=== PATIENT | male | born 1965 | race Caucasian/White ===

== ENCOUNTER 2016-11-11 08:22 | Inpatient (IN) | payer SELFPAY ==
[~2016-11-11] VITALS: Ht 182.9 cm; Wt 147.0 kg
--- NOTE | ~2016-11-11 | HP ---
Unit #: [id number] #: [id number] Patient: ADAM GUERRA [id number] [address] [place], [place] [address] [id number] MR#: [id number] NAME: ADAM GUERRA ROOM: Age: 51 Sex: M Admission Date: 11/11/2016 : 1965 Attending Physician: Michi Petty M.D. HISTORY AND PHYSICAL CHIEF COMPLAINT Left arm tingling and numbness. HISTORY OF PRESENT ILLNESS The patient is a 51-year-old male with a past medical history of hypertension, hyperlipidemia, and hypothyroidism, who presented to the emergency department for evaluation of the above. The patient states that he was in his usual state of health until the morning of admission when he was getting ready for work. He states that around 7 a.m. he noticed numbness and tingling involving his left arm and leg. He also reports weakness in the left hand. He is left-handed. He states that he was dropping the soap and had difficulty gripping his toothbrush. He denies any similar problem, although he did have an admission here in December 2010 for left upper extremity numbness. He states that this was much more severe than what occurred during that time. He denies any difficulty swallowing, no headache, no vision changes, and no chest pain or trouble breathing. In the emergency department, initial pulse and blood pressure were 87 and 178/112, respectively. A CT of the head was done and showed no acute findings. Also of note, the patient's glucose was 255 on comprehensive metabolic panel. He is being admitted to [facility] for evaluation and further treatment. PAST MEDICAL HISTORY 1. Admission to [facility] January 01-2010, for left upper extremity numbness concerning for a possible TIA. He was seen in consultation by Dr. Orr and underwent carotid Doppler that was negative for stenosis. Additionally, he had an MRI of the brain that was negative for acute infarction. He was discharged home on aspirin, hydrochlorothiazide, and Zocor. 2. Hypertension. 3. Hyperlipidemia. 4. Obstructive sleep apnea. 5. Hypothyroidism. PAST SURGICAL HISTORY 1. Mastoid surgery. 2. Tonsillectomy. 3. Testicular surgery. SOCIAL HISTORY The patient lives with his . There is no tobacco use. Reports Unit #: [id number] #: [id number] Patient: ADAM GUERRA occasional alcohol use. He works for [employer]. FAMILY HISTORY Notable for his mother having a myocardial infarction. She also had cervical cancer. His maternal grandfather had a cerebrovascular accident. ALLERGIES Aspirin "puts polyps in my nose." HOME MEDICATIONS None. The patient is supposed to be on hydrochlorothiazide, as well as Zocor. He states that he has not been taking them for over a year due to financial reasons. REVIEW OF SYSTEMS A complete review of systems is negative except as indicated in the History of Present Illness. The patient states that he has had frequent urination. He also reports increased thirst that he attributed to CPAP. He denies any change in his weight. Again, the patient states that he has not been taking medications due to financial reasons. PHYSICAL EXAMINATION VITAL SIGNS: Temperature is not recorded, pulse 87, respirations 16, blood pressure 178/112, most recently 196/98, and oxygen saturation is 95% on room air. GENERAL: Patient is a male who is awake, alert, and in no acute distress. HEENT: Head is atraumatic. Mucous membranes are moist. NECK: Supple. Trachea is midline. CARDIOVASCULAR: Regular rate and rhythm. LUNGS: Clear to auscultation bilaterally with no increased work of breathing. ABDOMEN: Soft and nontender with bowel sounds present in all four quadrants. EXTREMITIES: Nontender with no pedal edema. NEUROLOGIC: Patient is awake and alert. He follows commands. There is no facial asymmetry. Tongue is midline. There is no appreciable pronator drift. Radio Interference Expert strength is symmetric. Sensation is subjectively decreased involving the left cheek, as well as left upper and lower extremities. PSYCHIATRIC: Mood and affect are normal. Patient is cooperative. SKIN: Skin of examined areas is warm and dry. DIAGNOSTIC STUDIES LABORATORY: Complete blood count notable for white blood cell count of 10.8. INR is 1. Troponin is less than 0.05. Comprehensive metabolic panel notable for glucose of 255 and albumin is 3.1. IMAGING: CT of the head shows no acute abnormality. CARDIOLOGY: EKG shows normal sinus rhythm with a rate of 80 beats per minute. ASSESSMENT The patient is a 51-year-old male with: 1. Paresthesias of the left upper and lower extremities, as well as left face concerning for possible transient ischemic attack. The patient had a negative workup in 2010 for symptoms involving the left upper extremity. Unit #: [id number] #: [id number] Patient: ADAM GUERRA 2. Hyperglycemia. The patient denies ever being told he has diabetes. Glucose is 255 on comprehensive metabolic panel 3. Uncontrolled hypertension. The patient has not been taking medication due to financial reasons. He is supposed to be on hydrochlorothiazide. 4. Hyperlipidemia noncompliant with medication. 5. Obesity with a weight of 131.54 kg. 6. Hypothyroidism not on medication. 7. Obstructive sleep apnea on CPAP. PLAN 1. Admit for observation to intermediate level. 2. Healthy heart, consistent carbohydrate diet if passes bedside swallow. 3. MRI of the brain without contrast and CT angiogram of the head and neck per stroke protocol. 4. Stroke protocol per Neurology. 5. Neuro checks. 6. Aspirin if not already given. 7. Check temperature. 8. Consult Neurology regarding paresthesias of the left upper and lower extremities. 9. Hemoglobin A1c. 10. Low-dose sliding scale insulin with Accu-Cheks. 11. Restart hydrochlorothiazide. 12. Check TSH. 13. Serial cardiac enzymes. 14. CPAP at home settings. 15. SCDs for DVT prophylaxis. 16. Repeat labs in the morning. 17. Additional workup and consultants based on above. 1. Dictated by Toro Garrett/porfirio TD: 11/11/2016 15:46 JOB #: [id number] HISTORY AND PHYSICAL Page 1 of 1 X Therese Bell MD X HISTORY AND PHYSICAL
--- NOTE | ~2016-11-11 | DS ---
Unit #: [id number] #: [id number] Patient: ADAM GUERRA [id number] [address] [address] [id number] I MR#: [id number] NAME: ADAM GUERRA ROOM: 341 Age: 51 Sex: M Admission Date: 11/11/2016 : 1965 Discharge Date: 11/14/2016 Attending Physician: Junie Mustafa M.D. Primary Care Physician: No Primary Care Physician DISCHARGE SUMMARY PRIMARY CARE PROVIDER None. PRINCIPAL DIAGNOSES 1. 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 2. Diabetes mellitus type 2, uncontrolled with hemoglobin A1c of 9. 3. Hypertension. 4. Hyperlipidemia with low-density lipoprotein of 175. 5. Obstructive sleep apnea. 6. Mild protein malnutrition. 7. Medical noncompliance. 8. Hypothyroidism. 9. Obesity, morbid. 10. Peripheral arterial disease. 11. Reactive leukocytosis. 12. Chronic kidney disease stage 3 with baseline creatinine of approximately 1.3, likely diabetes and hypertensive induced. SELLING UNDERWRITER Dr. Orr, Neurology. PROCEDURES 1. A two-dimensional echocardiogram on November 13, 2016 with ejection fraction of 50% to 55%, mildly dilated left atrium noted, mildly enlarged right atrium, and mild aortic regurgitation, mild mitral regurgitation, mild tricuspid regurgitation. No evidence of vegetation. No clot. [id number] atherosclerosis of aorta. 2. CT of the head without contrast on November 11, 2016 with no acute findings. Chronic low-attenuation changes of the marlen secondary to small vessel disease or old infarct. 3. CT angiogram of the head and neck on November 12, 2016 with abnormal caliber change at the mid portion of both cervical internal carotid arteries. Intracranially, there is a regular appearance to the proximal intracranial vertebral arteries bilaterally, mild narrowing of the distal left common carotid artery but no hemodynamically significant per NASCET criteria. Abnormal right posterior cerebral artery distribution with high-grade stenosis or complete occlusion with reconstitution noted. 4. 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 CLINICAL HISTORY AND HOSPITAL COURSE Mr. Guerra is a 51-year-old male, who presents to the emergency Unit #: [id number] #: [id number] Patient: ADAM GUERRA department with tingling, numbness of the left extremities. He subsequently developed visual change. CT scan of the head in the emergency department was unremarkable and patient was initially placed in observation for TIA workup. Unfortunately the following morning, the patient developed left-sided visual change and appeared to be having evolving stroke for which he was seen by Dr. Orr. Patient was emergently transferred for open MRI which revealed stroke. Patient was found to have multiple uncontrolled risk factors including diabetes, hypertension, hyperlipidemia. He has been placed on medications for all the above and things are significantly improved. The patient continues to have tingling and numbness to the extremities and loss of the left peripheral vision. Unfortunately, patient does not have any insurance and does not qualify for Medicaid. public health social worker is currently in the process of discussing with the patient's being placed on her insurance. Unfortunately, this lack of funding prohibits my ability to send to subacute rehab or even obtain home health. Again, discussion with family is currently pending. I anticipate unfortunately discharge home with plans to obtain insurance through the patient's spouse and then hopefully at that time he can arrange perhaps transfer to [facility]. Of course, this plan is significantly suboptimal but patient is agreeable. DISCHARGE CONDITION Poorly ambulatory. DISCHARGE STATUS Discharge to home. DISCHARGE MEDICATIONS 1. Lipitor 40 mg at bedtime. 2. Refill his lisinopril 20 mg daily with three refills. 3. Plavix 75 mg p.o. daily with three refills. 4. Glucotrol 5 mg p.o. daily with three refills. 5. Metformin 1000 mg p.o. b.i.d. with three refills. 6. Vitamin B12 at 1000 mcg p.o. daily. 7. Glucometer, test strips, lancets also written. DISCHARGE INSTRUCTIONS 1. The patient was instructed to follow a heart healthy diabetic diet and he has received diabetic education. He will be taught how to use Glucometer prior to discharge and should do Accu-Cheks twice daily at home, once fasting and one meal two hours postprandial. 2. He can increase his activity as tolerated but again he is significant ataxic and rehab would be in his best interest. FOLLOWUP The patient will follow up with [facility] in one week. If patient is able to obtain insurance, he can be referred to [facility] for acute rehab. Time spent on discharge today, 52 minutes. Dictated by... Junie Mustafa M.D. Unit #: [id number] #: [id number] Patient: ADAM GUERRA BARRY/jose de jesus TD: 11/15/2016 15:34 JOB #: [id number] DISCHARGE SUMMARY Page 1 of 1 X Junie Mustafa MD X DISCHARGE SUMMARY
--- NOTE | ~2016-11-11 | CT23 ---
[facility] A Service of [facility] RADIOLOGY TEXT RESULTS PATIENT: ADAM GUERRA LOCATION: [facility] 341-01 : [birth year] UNIT #: [id number] AGE: [address]: Junie Mustafa MD SEX: M ORDER DR: [id number] [facility] [address]. [place], [place] [address] [id number] MR#: [id number] Acc #: [id number] NAME: ADAM GUERRA : 1965 SEX: M STUDY DATE/TIME: 11/12/2016 16:27 UNIT: [address] ROOM: [address] [place] [address] DESCRIPTION: CT Angio Neck Attending Physician: Junie Mustafa M.D. Ordering Physician: Bernadine Zuniga A.P.R.N. MEDICAL IMAGING REPORT This report is preliminary unless electronic signature is present EXAM CT angiogram head and neck HISTORY Left arm, face, leg numbness since 11/11/2016. This is a stroke protocol CTA. Apparently, it was ordered in the emergency room on 11/11/2016 but, per the technologist, orders were never placed. This resulted in delayed performance of the study. It is now being performed after being reordered by the physician on the floor. TECHNIQUE CT angiography of the head and neck vessels performed during the intravenous administration of 100 mL of Isovue-370. Imaging acquired in the axial plane followed by multiple reconstructed and reformatted images for the purpose of 3-D CT angiography of the head and neck vessels. This CT exam was performed with one or more of the following radiation dose reduction techniques: automatic exposure control, adjustment of mA and/or kV according to patient size, and iterative reconstruction. COMPARISON STUDIES There is an MRI of the brain from earlier today that shows a right posterior cerebral artery distribution infarct. FINDINGS CT ANGIOGRAM NECK: There is normal aortic arch branch pattern and no hemodynamically-significant narrowing is suspected at the great vessel origins from the arch. Evaluation of the right carotid system shows 0% stenosis at the right carotid bifurcation by NASCET criteria. There is, however, likely some mild smooth narrowing of the midportion of the cervical internal carotid STS. [facility] A Service of [facility] RADIOLOGY TEXT RESULTS PATIENT: ADAM GUERRA LOCATION: [facility] 341-01 : [birth year] UNIT #: [id number] AGE: [address]: Junie Mustafa MD SEX: M ORDER DR: artery on the right with some increased caliber of the vessel more distally at the distal cervical petrous portion. Evaluation of the left carotid system shows what is likely noncalcified plaque/wall thickening involving the distal common carotid artery extending into the bulb and there is smooth narrowing of the midportion of the cervical internal carotid artery on the left with increase in caliber of the vessel at the distal cervical internal carotid artery to the petrous portion. No dissection flap is appreciated. By NASCET criteria at the bifurcation, there is not hemodynamically significant stenosis, though there is probably mild stenosis of the distal left common carotid artery. The caliber change in the cervical internal carotid arteries is abnormal and nonspecific. A consideration would include dissection with some mural thrombus though as noted above. No flap is appreciated at this time. Another consideration would be underlying fibromuscular dysplasia and please evaluate further clinically for this possible entity. Some large vessel vasculitis is possible. The vessels are not beaded in configuration or irregular. This patient might benefit from MR angiogram of the neck vessels with a dissection protocol to see if mural hematoma can be documented. Both vertebral arteries are patent. The left is slightly dominant. The origins are not well seen due to technical factors. In the neck, the vertebral arteries are otherwise essentially unremarkable. Intracranially, the vessels have an irregular appearance bilaterally. Again, please correlate for concern for some vasculitis or underlying connective tissue disorder, such as fibromuscular dysplasia. There are mild areas of stenosis bilaterally, probably worse on the right in the proximal intracranial right vertebral artery. The basilar is widely patent. There is abnormal appearance to the right posterior cerebral artery distribution with mild narrowing at its origin and a high-grade stenosis or occlusion with reconstitution at about P2/P3 junction on the right side. This is consistent with a large recent ischemic insult seen. Flow to the right posterior cerebral artery distribution distal to this is diminished when compared to the left side. More irregular narrowing throughout the P1/P2 vessel on the right also noted. There is milder irregular narrowing seen in the proximal left posterior cerebral artery distribution. The anatomy at the level of the anterior communicator is complex with 3 A2-type vessels. No definite aneurysm is seen. The left A1 vessels mildly hypoplastic. No additional focal central stenosis or intracranial vascular cutoff is suspected. Neither posterior communicator is definitely seen. No suspicion for intracranial aneurysm allowing for the technical limitation of CT for evaluation of the aneurysm at the level of the skull base. There are some cervical spine degenerative changes and there are postop changes midline anterior soft tissue neck. Partly seen is some paranasal sinus disease and fluid or inflammatory change in the mastoid air cells. On the right side, there is some defect in the inferolateral mastoid. Please correlate for history of wall up mastoidectomy. [facility] A Service of [facility] RADIOLOGY TEXT RESULTS PATIENT: ADAM GUERRA LOCATION: [facility] 341-01 : 69 UNIT #: [id number] AGE: [address]: Junie Mustafa MD SEX: M ORDER DR: IMPRESSION 1. The study is abnormal. There is abnormal caliber change noted at the midportion of both cervical internal carotid arteries. The vessels are smoothly narrowed when compared to the more distal vessels bilaterally. This is abnormal and raises concern for some underlying pathology, such as fibromuscular dysplasia or possibly dissection with mural hematoma. No dissection flap is seen. Please correlate for clinical evidence of fibromuscular dysplasia or concern for some type of a larger vessel vasculitis. Additionally, intracranially, there is an irregular appearance to the proximal intracranial vertebral arteries bilaterally. There is some irregular stenosis with mild narrowing more apparent to the right than the left. This narrowing is irregular rather than smooth and is seen in the internal carotid arteries but again is abnormal and raises concern for some type of underlying pathology, such as vasculitis or fibromuscular dysplasia. 2. There is mild narrowing of the distal left common carotid artery but by NASCET criteria, there is not hemodynamically-significant narrowing at the carotid bifurcations. 3. There is an abnormal appearance to the right posterior cerebral artery distribution. There is diminished flow with areas of high-grade stenosis or complete occlusion with reconstitution seen. The vessel is also irregular. There is milder irregularity in the left posterior cerebral artery distribution. This could be due to the residua of thromboembolic disease or possibly intracranial involvement with vasculitis. Consider correlation with a conventional angiogram if there is concern for vasculitis. 4. Vascular variations were discussed above. Aside from the posterior circulation findings, no additional intracranial vascular cutoff is appreciated or central stenosis is appreciated. 5. Patient has probably had prior wall up mastoidectomy on the right. Please correlate with surgical history. Efforts underway to reach covering practitioner to relay information verbally at this time. I spoke to covering practitioner within the hour. STAT * RESULT Dictated by... Suzie Shultz M.D. THIS IS AN ELECTRONICALLY VERIFIED REPORT Suzie Shultz M.D. at 11/13/2016 7:27 AM SAC/pcl TD: 11/12/2016 17:55 [facility]. [facility] A Service of [facility] RADIOLOGY TEXT RESULTS PATIENT: ADAM GUERRA LOCATION: [facility] 341-01 : [birth year] UNIT #: [id number] AGE: [address]: Junie Mustafa MD SEX: M ORDER DR: JOB #: [id number] MEDICAL IMAGING REPORT Page 1 of 1 COPY
--- NOTE | ~2016-11-11 | HM ---
Unit #: [id number] #: [id number] Patient: ADAM GUERRA [id number] [place], [place] [address] [id number] I MR#: [id number] NAME: ADAM GUERRA : 1965 SEX: M STUDY DATE/TIME: 11/12/2016 UNIT: [facility] PCU ROOM: 341 STUDY DESCRIPTION: Attending Physician: Junie Mustafa M.D. Primary Care Physician: No Primary Care Physician CARDIOLOGY REPORT EXAM 24-hour Holter monitor. DATE APPLIED 11/12/2016 DATE SCANNED 11/15/2016 READ BY [facility] Cardiology. ORDERED BY Haider Zuniga. REASON FOR STUDY Stroke. FINDINGS Underlying rhythm is sinus tachycardia with an average heart rate of 104 beats per minute, minimum heart rate of 67 beats per minute, and a maximum heart rate of 137 beats per minute. The minimum heart rate of 67 beats per minute is noted at 2:46 p.m. The maximum heart rate of 137 beats per minute is noted at 3:33 p.m. The patient had a 0.7 second pause noted at 11:55 p.m. The patient had 2039 single multifocal premature ventricular complex, 74 ventricular couplets, and 16 ventricular bigeminy noted. The patient had 127 single premature atrial complex noted. No atrial fibrillation seen. CONCLUSION 1. Underlying rhythm is sinus tachycardia with an average heart rate of 104 beats per minute, minimum heart rate of 67 beats per minute, and a maximum heart rate of 137 beats per minute. 2. No sustained atrial or ventricular arrhythmias noted. 3. No significant pauses noted. 4. Frequent single multifocal premature ventricular complex and ventricular couplets noted. 5. Occasional single premature atrial complex noted. 6. No atrial fibrillation noted. 7. Patient did not record any symptoms. Unit #: [id number] #: [id number] Patient: ADAM GUERRA Dictated by... Toro Castillo TD: 11/15/2016 16:25 JOB #: [id number] CARDIOLOGY REPORT Page 1 of 1 X Radha Batres MD <ELECTRONICALLY SIGNED> 11/16/16 1429 HOLTER MONITOR REPORT
--- NOTE | ~2016-11-11 | EKG ---
PATIENT: ADAM GUERRA UNIT #: [id number] Ventricular Rate: 80 BPM Atrial Rate: 80 BPM P-R Interval: 154 ms QRS Duration: 110 ms Q-T Interval: 388 ms QTC Calculation(Bezet): 447 ms P Windsor: 54 degrees Calculated R Windsor: -63 degrees Calculated T Windsor: 57 degrees Diagnosis Line: Normal sinus rhythm Diagnosis Line: Pulmonary disease pattern Diagnosis Line: Left anterior fascicular block Diagnosis Line: Abnormal ECG Diagnosis Line: When compared with ECG of 20-FEB-2012 09:00, Diagnosis Line: T wave inversion no longer evident in Inferior Diagnosis Line: leads Diagnosis Line: Confirmed by KENDALL SALEH MD ([id number]) on Diagnosis Line: 11/11/2016 7:36:37 PM INTERPRETING MD: THERESE KOLB
--- NOTE | ~2016-11-11 | CT71 ---
[facility] A Service of [facility] [place] RADIOLOGY TEXT RESULTS PATIENT: ADAM GUERRA LOCATION: [facility] : [birth year] UNIT #: [id number] AGE: [address]: Michi Petty MD SEX: M ORDER DR: [id number] [facility] [address] [facility]. [place], [place] [address] [id number] MR#: [id number] Acc #: [id number] NAME: ADAM GUERRA : 1965 SEX: M STUDY DATE/TIME: 11/11/2016 10:23 UNIT: PEDRO ROOM: STUDY DESCRIPTION: CT Head Wo Contrast Attending Physician: Michi Petty M.D. Ordering Physician: Michi Petty M.D. Primary Care Physician: Primary Care Physician No MEDICAL IMAGING REPORT This report is preliminary unless electronic signature is present EXAM Head CT 11/11 INDICATIONS Left arm numbness and tingling with facial numbness that started today. FINDINGS Axial images were obtained from base to vertex without contrast. Comparison is made with 07/17/2011. The CT exam was performed with one or more of the following radiation dose reduction techniques: automatic exposure control, adjustment of mA and/or kV according to patient size, and iterative reconstruction. No skull fractures are identified. Postoperative changes are noted in the right temporal bone. Chronic mucosal thickening again seen in the left maxillary sinus with probable mucous retention cyst. Ventricular size and configuration are within normal limits. There is no acute infarct or hemorrhage. There are no masses. Chronic small vessel ischemic changes are present in the white matter. IMPRESSION No acute findings in the brain. No significant change from prior. Chronic changes in the left maxillary sinus. Postoperative changes noted right temporal bone. There are chronic low attenuation changes in the marlen which could be related to chronic small vessel ischemic disease or old infarct. These are also stable. Addendum: There are chronic low attenuation changes in the marlen which could be related chronic small vessel ischemic disease or old infarct. These are also stable. . [facility] A Service of [facility] [place] RADIOLOGY TEXT RESULTS PATIENT: ADAM GUERRA LOCATION: [facility] : [birth year] UNIT #: [id number] AGE: [address]: Michi Petty MD SEX: M ORDER DR: Dictated by... Servando Smith Jr., M.D. THIS IS AN ELECTRONICALLY VERIFIED REPORT Servando Smith Jr., M.D. at 11/11/2016 5:18 PM TACO/noa TD: 11/11/2016 11:10 JOB #: [id number] MEDICAL IMAGING REPORT Page 1 of 1 COPY
--- NOTE | ~2016-11-11 | MR18 ---
[facility] A Service of [facility] RADIOLOGY TEXT RESULTS PATIENT: ADAM GUERRA LOCATION: A 341-01 : [birth year] UNIT #: [id number] AGE: [address]: Junie Mustafa MD SEX: M ORDER DR: [id number] [facility] [address] [address]. [place], [place] [address] [id number] I MR#: [id number] Acc #: [id number] NAME: ADAM GUERRA : 1965 SEX: M STUDY DATE/TIME: 11/12/2016 14:03 UNIT: A PCU ROOM: 341 STUDY DESCRIPTION: MR Brain Wo Contrast Attending Physician: Junie Mustafa M.D. Ordering Physician: Therese Bell M.D. Primary Care Physician: Primary Care Physician No MEDICAL IMAGING REPORT This report is preliminary unless electronic signature is present EXAM MRI of the brain without HISTORY 51-year-old male patient complains of left arm weakness, numbness, and tingling with left-sided facial numbness for 2 days. Question CVA. This is an inpatient from [facility]. Study performed on wide-bore magnet secondary to size. Study is motion limited, and this is despite patient medication. TECHNIQUE MRI of the brain was performed without contrast using routine 1.5-T wide-bore imaging technique. COMPARISON There is comparison study from 01/01/2011. FINDINGS There is a new large area of abnormally restricted diffusion in the right posterior cerebral artery distribution. The area of involvement is large, about 9 cm AP dimension x 2.9 cm ML dimension, involving the medial right temporal lobe to the medial right occipital lobe inferiorly. There is additionally restricted diffusion in the right thalamus, consistent with insult to a thalamoperforator. This is most consistent with a thromboembolic insult to the right posterior cerebral artery distribution. Further clinical evaluation for possible thromboembolus source is recommended. Patient is apparently scheduled for a CT angiogram of the head and neck. Allowing for the considerable motion, there is mild local mass effect, and there is signal abnormality on T2 and FLAIR imaging. There is also what is likely chronic disease in the brainstem with abnormal signal intensity [facility] A Service of [facility] RADIOLOGY TEXT RESULTS PATIENT: ADAM GUERRA LOCATION: [facility] 341-01 : [birth year] UNIT #: [id number] AGE: [address]: Junie Mustafa MD SEX: M ORDER DR: within the marlen centrally extending to the medulla. There is also, in addition to the right thalamic lacunar insult which is more recent in appearance, preexisting lacunar disease in the thalami and basal ganglia. There is nothing to suggest hemorrhagic transformation. During this call, I have relayed the findings to Dr. Haleigh goff for this patient at [facility]. There is no extraaxial fluid collection. Major intracranial flow voids are maintained. There is some fluid or inflammatory change in the mastoid air cells, worse on the right. There is some mucosal disease likely in the paranasal sinuses, at least left maxillary sinus. Midline structures are grossly unremarkable. IMPRESSION 1. Significant motion limitation of study noted. Nonetheless, there is a large recent-appearing ischemic insult involving the right posterior cerebral artery distribution with local mass effect, but no midline shift and no convincing evidence for hemorrhagic transformation. Further evaluation of possible thromboembolus source is recommended. In addition to involvement of the medial right temporal and right occipital lobe, there is an insult in the right thalamus consistent with extension through a thalamoperforator on the right. Further evaluation for thromboembolus source recommended. 2. Preexisting probable sequelae of small vessel disease. STAT * RESULT Dictated by... Suzie Shultz M.D. THIS IS AN ELECTRONICALLY VERIFIED REPORT Suzie Shultz M.D. at 11/15/2016 3:20 PM Manjula TD: 11/12/2016 16:13 JOB #: [id number] MEDICAL IMAGING REPORT Page 1 of 1 COPY
--- NOTE | ~2016-11-11 | A ---
[facility] Nutrition Therapy DATE: 11/13/16 Patient: ADAM GUERRA Physician: DEVEN Address: [address] [facility] Room/Bed: [address] [place] [address], Zip: [place] [phone] Admit Date: 11/11/16 Date of : [birth year] Height: 6 0 Weight: 324 147 NUTRITIONAL ASSESSMENT: REASON: Consult re: nutrition education 51 y/o male admitted for parsthesis. New Dx of T2DM PMH: HTN, HLD, hypothyroid, Anthropometrics: ht: 6'0" wt: 324# (147 kg) BMI 43 Assessment: Chart reviewed, events noted. Pt seen for consult re: nutrition education. Pt has HTN, HLD, and new Dx of T2DM. RD manufacturing engineering intern visited pt at bedside and provided pt with written and verbal diet education regarding heart healthy diet and diabetes medical nutrition therapy. Pt was very receptive to information and motivated to change. RD manufacturing engineering intern helped pt set goals and encouraged compliance to diet information given. RD/manufacturing engineering intern will remain available. Intervention: 1. Diet education Recommendations: 1. Comply with diet education given. 2. This pt would benefit from following up with an outpatient dietitian to assist with weight loss and diabetes management. 3. Recommend consulting a certified physician assistant for this pt. RD will f/u per protocol. Respectfully, REYNOLD LOPEZ, hospitality intern Peggy Sotelo MS, RD, LD Food and Nutritional Services [facility] cc: client file
--- NOTE | ~2016-11-11 | EE ---
Unit #: [id number] #: [id number] Patient: ADAM GUERRA [id number] [address] [address] [id number] I MR#: [id number] NAME: ADAM GUERRA : 1965 SEX: M STUDY DATE/TIME: 11/12/2016 UNIT: C3A PCU ROOM: [address] [place] [address] DESCRIPTION: EEG Attending Physician: Junie Mustafa M.D. Referring Physician: Therese Bell M.D. Primary Care Physician: No Primary Care Physician NEURODIAGNOSTICS REPORT EXAM EEG REASON FOR THE STUDY Dizziness, paresthesias, rule out focal seizures. EEG DESCRIPTION This is an inpatient, digitally recorded multi-montage adult EEG with leads placed according to the International 10-20 System. Hyperventilation was not done but photic stimulation was attempted. With the patient fully aroused, there is 9.5 Hz posterior dominant alpha rhythm which is symmetric and attenuates with eyes opening. The patient did become drowsy and later on stage 2 sleep was seen. No clearcut interictal discharges or clinical events were seen. Hyperventilation was not done. Photic stimulation was attempted in intermittent stepwise pattern up to the flash frequency of 30 Hz but I did not see any driving, asymmetry or paroxysmal activity. No clinical events were seen. IMPRESSION This is essentially a normal adult awake and asleep EEG. An EEG like this does not rule out epilepsy. Clinical correlation is recommended. Dictated by... Toro Menchaca/paula TD: 11/13/2016 09:24 JOB #: [id number] Unit #: [id number] #: [id number] Patient: ADAM GUERRA NEURODIAGNOSTICS REPORT Page 1 of 1 X Mya Orr MD NEURODIAGNOSTICS REPORT
--- NOTE | ~2016-11-11 | CT17 ---
[facility] A Service of [facility] RADIOLOGY TEXT RESULTS PATIENT: ADAM GUERRA LOCATION: [facility] 341-01 : [birth year] UNIT #: [id number] AGE: [address]: Junie Mustafa MD SEX: M ORDER DR: [id number] [place] [address] [place], [place] [address] [id number] I MR#: [id number] Acc #: [id number] NAME: ADAM GUERRA : 1965 SEX: M STUDY DATE/TIME: 11/12/2016 16:27 UNIT: [address] ROOM: [facility] STUDY DESCRIPTION: CT Angio Head Attending Physician: Junie Mustafa M.D. Ordering Physician: Bernadine Zuniga A.P.R.N. MEDICAL IMAGING REPORT This report is preliminary unless electronic signature is present EXAM CTA head and neck HISTORY Refer below. FINDINGS Please refer to the CTA head report on the same date for complete details. Dictated by... Suzie Shultz M.D. THIS IS AN ELECTRONICALLY VERIFIED REPORT Suzie Shultz M.D. at 11/13/2016 7:27 AM FRANNY/lianne TD: 11/12/2016 19:24 JOB #: [id number] MEDICAL IMAGING REPORT Page 1 of 1 COPY
--- NOTE | ~2016-11-11 | CO ---
Unit #: [id number] #: [id number] Patient: ADAM GUERRA [id number] [place] [id number] [facility]. [place], [place] [address] [id number] I MR#: [id number] NAME: ADAM GUERRA ROOM: 341 Age: 51 Sex: M Admission Date: 11/11/2016 : 1965 Attending Physician: Junie Mustafa M.D. Primary Care Physician: Primary Care Physician No Consultation Date: 11/11/2016 CONSULTATION REPORT PRIMARY CARE PHYSICIAN Not listed. REASON FOR CONSULT Paresthesia of the left upper and left lower extremities. PATIENT IDENTIFICATION This is a 51-year-old, left-handed, male, evaluated in the ER room 20 at [facility]. SOURCE OF INFORMATION Obtained from the patient as well as medical record. HISTORY OF PRESENT ILLNESS This is a 51-year-old, left-handed, male with a past medical history of hypertension, hypothyroidism, hyperlipidemia, possible TIA in the past who presents to [facility] with complaints of sudden onset of left facial, left arm, and left leg weakness and tingling. He states that he woke up in his usual state of health and when he was showering around 7:00 in the morning, he felt lightheaded and felt as though he could not hold his toothbrush in his left arm. He felt like his left side of his face, arm, and leg were tingling and that he had difficulty using them. He denies having any fall or slurred speech, but states he felt as though his left side of his face was droopy. He states that he continues to feel as though the left side of his face, arm, and leg are tingly. He states that at one point, the left side of the face felt twitchy and that it now more feels tingly. Symptoms have improved, but he states that he still feels as though "things are not normal." He denies any vertigo. He denies any loss of vision or double vision, headache or neck pain, new or recent infectious symptoms, illness or injury. He does admit to noncompliance with his medications. He denies any exacerbating or alleviating factors or any other associated symptoms. He denies any associated chest pain, shortness of air, abdominal pain, or palpitations. He denies any swallowing difficulty, headache or neck pain, recent illness or injury, or loss of consciousness or loss of awareness. He denies any twitching of his left arm or left leg. He reports that they felt weak this morning. He had a head CT without contrast in the ER on 11/11/2016 that shows no acute findings in the brain with chronic changes in the left maxillary sinus. Postoperative changes noted in the right temporal bone and chronic low attenuation changes in the marlen, which could be related to chronic small vessel ischemic disease or early infarct, stable. Blood glucose in the ER on arrival was 217. White blood cell count was 10.8, hemoglobin 15.3, hematocrit 46.4, platelet count 173. His PT was 11, INR 1.0, PTT 28.5, troponin less than 0.05 and repeat troponin Unit #: [id number] #: [id number] Patient: SHEARIN,ADAM less than 0.05 and TSH 2.25. PAST MEDICAL HISTORY 1. He was seen at this facility in 2010 for possible TIA with similar symptoms of left arm numbness only. He was treated for possible TIA, hypertension, hyperlipidemia, as well as hypothyroidism and atypical chest pain felt to be noncardiac in origin. He had an MRI of the brain done that was negative for any acute infarction, mass lesion or acute hemorrhage and a carotid Doppler that was negative for stenosis. He was sent home on hydrochlorothiazide, Zocor and aspirin. 2. Hypertension. The patient admits that he is not compliant. 3. Hypothyroidism. 4. Hyperlipidemia, as discussed above. 5. Obesity. 6. Tonsillectomy. 7. Adenoidectomy. 8. Testicular surgery. 9. Mastoid bone removal on the right. 10. Nonsmoker. ALLERGIES He reports an allergy to aspirin, though apparently it is documented as developing nasal polyps, not an actual anaphylactic allergy or intolerance with GI bleeding. HOME MEDICATIONS His home medications are being reconciled, but he admits to noncompliance with his medications. FAMILY HISTORY Positive for myocardial infarction, stroke and cancer. SOCIAL HISTORY The patient is . He denies tobacco use, alcohol abuse or illicit drug use. He states he drinks very rarely. REVIEW OF SYSTEMS 14-point review of systems was done. Pertinent positives as discussed above, otherwise negative. PHYSICAL EXAMINATION VITAL SIGNS: Temperature not yet documented, he has been reported as afebrile, pulse 96, respirations 16, blood pressure 175/108, blood pressure in the ER on arrival was 178/112, oxygen saturation 93%, height 6 feet 0 inches, which is documented from 2014. He does not have a current weight in the computer. His last weight was documented as 290 in 2015. NEUROLOGIC: The patient is awake, alert, and oriented to person, place, and time as well as events. No right or left confusion. No finger agnosia. No aphasia, dysarthria, or apraxia. Cranial nerve exam; on repeat scherer of vision testing, he demonstrates repeated difficulty in the left upper outer quadrant visual field concerning for possible quadrantanopia. He had difficulty with this repeatedly on exam inconsistently. His eyes are however conjugate. There is no ptosis, no nystagmus. Extraocular movements are intact. Sensation of face and scalp exam, he has difficulty differentiating between soft touch and pinprick on the face, arm, and leg on the left side Unit #: [id number] #: [id number] Patient: SHEARIN,ADAM compared to the right. Hearing is intact to voice. He is hard of hearing. Tongue is midline. Uvula is midline. Palate elevation is normal. Head turning and shoulder shrug are unremarkable. Neck is supple. Motor exam demonstrates normal bulk and tone. His strength is essentially equal. I do not appreciate any focal weakness on exam. Sensory exam as discussed above. Gait and Romberg deferred. Coordination unremarkable. DIAGNOSTIC STUDIES IMAGING STUDIES: As discussed above. LABORATORY RESULTS: As discussed above. IMPRESSION 1. Left facial and left-sided dysesthesia, concern for possible left quadrantanopia, rule out ischemic infarct. 2. History of left-sided paresthesia in 2010 of the left upper extremity, possible transient ischemic attack. 3. Noncompliance with medications. 4. Hypertension, not well controlled. 5. Hyperlipidemia. We will check a fasting lipid profile in the morning. 6. History of hypothyroidism. TSH today is 2.25. 7. History of obesity. 8. Nonsmoker. PLAN The patient states an allergy to aspirin though seems to be more of an intolerance. Regardless, we will start the patient on Plavix rather than aspirin and we will initiate a stroke workup as well as an EEG. He is going to do MRI at this time for further evaluation. We will follow up on that imaging as well as a CT angiogram of the head and neck to further evaluate his intracranial circulation and extracranial circulation of the head and neck. We will follow along with you. He was not considered as a code stroke or for alteplase in the ED as he did not demonstrate symptoms of a measurable or disabling deficits as documented by the ED physician in the ER. We will follow along with you. We thank you very much for allowing us to assist in the care of this patient this, Dictated by... Bernadine Zuniga A.P.R.N. for Toro Menchaca/yoanna TD: 11/12/2016 08:21 JOB #: [id number] Unit #: [id number] #: [id number] Patient: ADAM GUERRA CONSULTATION REPORT Page 1 of 1 X Bernadine Zuniga PLASTIC SEWER X CONSULTATION REPORT
--- NOTE | ~2016-11-11 | A ---
[facility] Nutrition Therapy DATE: 11/12/16 Patient: ADAM GUERRA Physician: DEVEN Address: [address] [facility] Room/Bed: [address] [place] [address], Zip: [place] [address] Admit Date: 11/11/16 Date of : [birth year] Height: 6 0 Weight: 324 147 NUTRITIONAL ASSESSMENT: REASON: Consult re: nutrition education and high BMI 51 y/o male admitted for parsthesis PMH: HTN, HLD, hypothyroid Anthropometrics: ht: 6'0" wt: 324# (127 kg) BMI 43 Diet: Healthy Heart Assessment: Chart reviewed, events noted. Pt gone to another facility for MRI at this time. Unable to provide diet education at this time. Will follow-up tomorrow. Respectfully, REYNOLD LOPEZ, sport internship Peggy Sotelo MS, RD, LD Food and Nutritional Services [facility] cc: client file
[~2016-11-11 08:22] MED LIST: AMOXICILLIN PO; ANTIVERT PO; AUGMENTIN PO; BENTYL20 MG DOB; CIPRO250 MG PO; CLARITIN10 MG PO; COREG3.125 MG PO; ECOTRIN81 M1 PO; ERYTHROMYCIN O3.5 G1 OP; HYDROCHLOROTHIA25 MG PO; INDOMETHACIN50 MG PO; LEVAQUIN PO; NO MEDICATIONS; NORCO 5/325 TAB1 TAB PO; PEPTO-BISMOL262 M1 PO; PHENERGAN PO; PHENERGAN25 M1 PO; PHENERGAN25 MG PO; VICODIN 5/500 T1 TAB PO; ZANTAC PO; ZOCOR PO
[2016-11-11 09:20] LABS: BASOPHIL# 0.1 X10e3 (0-0.3); BASOPHIL% 0.6 % (0-2.5); EOSINOPHIL# 0.2 X10e3 (0-0.7); EOSINOPHIL% 1.4 % (0.0-7.0); HEMATOCRIT 46.4 % (38.0-50.0); HEMOGLOBIN 15.3 gm/dL (13.0-16.0); LYMPHOCYTE# 2.2 X10e3 (1.0-3.5); LYMPHOCYTE% 20.6 % (17.0-45.0); MEAN CORPUSCULAR HEMOGLOBIN 27.7 PG (28-34); MEAN PLATELET VOLUME 9.6 FL (6.5-11.5); MONOCYTE# 0.6 X10e3 (0-1.0); MONOCYTE% 5.6 % (3.0-12.0); NEUTROPHIL# 7.8 X10e3 (1.5-7.1); NEUTROPHIL% 71.8 % (40-75); PLATELET COUNT 173 X10e3 (140-420); RED BLOOD COUNT 5.53 X10e (3.90-5.60); RED CELL DISTRIBUTION WIDTH 13.2 % (11.0-15.5); WHITE BLOOD COUNT 10.8 X10e3 (4.0-10.5)
[2016-11-11 09:29] LABS: DIFF IND NO
[2016-11-11 09:34] LABS: PARTIAL THROMBOPLASTIN TIME 28.5 SECONDS (23.5-31.3)
[2016-11-11 09:36] LABS: POC - CKMB 1.3 ng/mL (0.0-7.9); POC - TROPONIN <0.05 ng/mL (<=0.05)
[2016-11-11 09:57] LABS: ALBUMIN SERUM 3.1 g/dL (3.5-5.0); BILIRUBIN, DIRECT 0.1 mg/dL (0.0-0.2); BILIRUBIN,INDIRECT 0.1 mg/dL (0.0-0.9); BILIRUBIN,TOTAL 0.2 mg/dL (0.2-2.0); BUN/CREATININE RATIO 7.5; CREATININE SERUM 1.2 mg/dL (0.6-1.4); GLOM FILT RATE Estimated 70.6 mL/min (>60); PROTEIN TOTAL SERUM 7.6 g/dL (6.0-8.3)
[2016-11-11 12:08] LABS: POC - CKMB 1.6 ng/mL (0.0-7.9); POC - TROPONIN <0.05 ng/mL (<=0.05)
[2016-11-11 19:00] LABS: %MB 2.9 % (0.0-4.0); MB 2.4 ng/ml
[2016-11-12 00:33] LABS: %MB 1.6 % (0.0-4.0); MB 1.6 ng/ml
[2016-11-12 05:42] LABS: HEMATOCRIT 47.4 % (38.0-50.0); HEMOGLOBIN 15.6 gm/dL (13.0-16.0); MEAN CELL VOLUME 83.9 FL (83-96); MEAN CORPUSCULAR HEMOGLOBIN 27.7 PG (28-34); MEAN PLATELET VOLUME 10.3 FL (6.5-11.5); RED BLOOD COUNT 5.65 X10e (3.90-5.60); RED CELL DISTRIBUTION WIDTH 13.1 % (11.0-15.5); WHITE BLOOD COUNT 13.7 X10e3 (4.0-10.5)
[2016-11-12 06:05] LABS: CHOLESTEROL 235 mg/dL (0-200); HDL CHOLESTEROL 35 mg/dL (29-75); LDL/HDL RATIO 5 RATIO (0-4); TRIGLYCERIDES 124 mg/dL (10-160)
[2016-11-12 06:06] LABS: LDL CHOLESTEROL 175 mg/dL (-130)
[2016-11-12 06:50] LABS: ALBUMIN SERUM 3.3 g/dL (3.5-5.0); BILIRUBIN,TOTAL 1.2 mg/dL (0.2-2.0); BUN/CREATININE RATIO 9.23; CALCIUM SERUM 9.1 mg/dL (8.4-10.2); CREATININE SERUM 1.3 mg/dL (0.6-1.4); GLOM FILT RATE Estimated 64.1 mL/min (>60); POTASSIUM 3.2 mmol/L (3.5-5.1); PROTEIN TOTAL SERUM 8.1 g/dL (6.0-8.3)
[2016-11-13 07:16] LABS: HEMATOCRIT 47.6 % (38.0-50.0); MEAN CELL VOLUME 82.9 FL (83-96); MEAN CORPUSCULAR HEMOGLOBIN 27.9 PG (28-34); MEAN CORPUSCULAR HGB CONC 33.6 g/dL (30-36); MEAN PLATELET VOLUME 9.7 FL (6.5-11.5); RED BLOOD COUNT 5.75 X10e (3.90-5.60); RED CELL DISTRIBUTION WIDTH 13.2 % (11.0-15.5); WHITE BLOOD COUNT 12.2 X10e3 (4.0-10.5)
[2016-11-13 07:18] LABS: INR 1.1; PROTHROMBIN TIME (PATIENT) 11.5 SECONDS (10.0-11.7)
[2016-11-13 07:50] LABS: BUN/CREATININE RATIO 13.84; CALCIUM SERUM 9.4 mg/dL (8.4-10.2); CREATININE SERUM 1.3 mg/dL (0.6-1.4); GLOM FILT RATE Estimated 64.1 mL/min (>60); POTASSIUM 3.6 mmol/L (3.5-5.1)
[2016-11-13 08:45] LABS: FOLATE (FOLIC ACID) 13.4 ng/mL (>5.8)
[2016-11-14 07:38] LABS: BUN/CREATININE RATIO 17.85; CALCIUM SERUM 9.5 mg/dL (8.4-10.2); CREATININE SERUM 1.4 mg/dL (0.6-1.4); GLOM FILT RATE Estimated 58.6 mL/min (>60)
[2016-11-14 07:42] LABS: URINE APPEARANCE CLEAR; URINE BLOOD 2+ (NEG); URINE COLOR DK YELLOW; URINE GLUCOSE NEG (NEG); URINE KETONE TRACE (NEG); URINE LEUKOCYTE ESTERASE TRACE (NEG); URINE NITRATE NEG (NEG); URINE PROTEIN 1+ (NEG); URINE SPECIFIC GRAVITY 1.025 (1.003-1.035)
[2016-11-14 07:45] LABS: URINE BACTERIA AUWI NEG (NEGATIVE); URINE SQUAMOUS EPITHELIAL CELL OCC /[HPF]
[2016-11-14 07:57] LABS: URINE BILIRUBIN NEG (NEG)
[2016-11-14] MEDS ORDERED: LIPITOR40 MG PO (16:50)
[2016-11-14] MEDS ORDERED: LISINOPRIL20 MG PO (16:51)
[2016-11-14] MEDS ORDERED: CLOPIDOGREL75 MG PO (17:05)
[2016-11-14] MEDS ORDERED: GLUCOTROL PO (17:07)
[2016-11-14] MEDS ORDERED: B-121000 MC1 PO (17:08)
[2016-11-14] MEDS ORDERED: METFORMIN PO (17:08)
== END 2016-11-14 19:00 | disposition home or self-care (01) | DRG 65 ==
LOC: CED 08:22 → CEDOF 13:40 → C3A PCU 13:40 → CEDOF 17:25 → CED 17:25 → CEDOF 17:55 → C3A PCU 18:38 → CEDOF 18:38 → C3A PCU 18:38
PROVIDERS: Emergency Medicine; Family Medicine; Internal Medicine; Psychiatry & Neurology Neurology
PROC: B246ZZ4 Ultrasonography of Right and Left Heart, Transesophageal (ICD-10-PCS; principal; 2016-11-13)
DX: I63.09 Cerebral infarction due to thrombosis of other precerebral artery (principal); Z68.41 Body mass index [BMI] 40.0-44.9, adult; E11.22 Type 2 diabetes mellitus with diabetic chronic kidney disease; N18.3 Chronic kidney disease, stage 3 (moderate); E44.1 Mild protein-calorie malnutrition; H53.47 Heteronymous bilateral field defects; E03.9 Hypothyroidism, unspecified; E78.5 Hyperlipidemia, unspecified; Z91.14 Patient's other noncompliance with medication regimen; E66.01 Morbid (severe) obesity due to excess calories; Z82.3 Family history of stroke; Z80.9 Family history of malignant neoplasm, unspecified; H91.90 Unspecified hearing loss, unspecified ear; E11.65 Type 2 diabetes mellitus with hyperglycemia; G47.33 Obstructive sleep apnea (adult) (pediatric); I73.9 Peripheral vascular disease, unspecified; I12.9 Hypertensive chronic kidney disease with stage 1 through stage 4 chronic kidney disease, or unspecified chronic kidney disease; R27.0 Ataxia, unspecified
CPT/HCPCS: 36415; 70450; 70496; 70498; 70551; 80048; 80053; 80061; 80076; 81003; 82550; 82553; 82607; 82746; 82947; 83036; 83735; 84443; 84484; 85025; 85027; 85610; 85652; 85730; 86140; 87086; 93005; 93225; 93226; 93312; 94760; 95816; 97110; 97116; 97163; 97167; 97530; 97535; 99285; G8978-GP; G8979-GP; G8987-GO; G8988-GO; G8989-GO; J0360; J1815; J2060; J2250; J3010; Q9967

== ENCOUNTER 2016-11-16 20:23 | Inpatient (IN) | payer OTHER ==
--- NOTE | ~2016-11-16 | HP ---
Unit #: [id number] #: [id number] Patient: ADAM GUERRA [id number] [address] [place], [place] [address] [id number] MR#: [id number] NAME: ADAM GUERRA ROOM: 25357 Age: 51 Sex: M Admission Date: 11/16/2016 : 1965 Attending Physician: Tim Carcamo M.D. Primary Care Physician: No Primary Care Physician HISTORY AND PHYSICAL CHIEF COMPLAINT Left eyelid drooping. DISCUSSION This is a 51-year-old gentleman with history of diabetes, hypertension, dyslipidemia, obstructive sleep apnea, hypothyroidism, morbid obesity, hard of hearing/deaf from left ear. He was admitted here on 11/11/16. He presented to the ER with the chief complaint of tingling and numbness in the left extremities. Subsequently he developed visual changes and initially had a CT scan in the emergency room, which was unremarkable. Then, he developed left-sided visual changes, and the patient had an open MRI, which revealed stroke. While in the hospital, he continued to have tingling and numbness to the extremities and loss of left peripheral vision. Unfortunately, the patient does not have any insurance. Does not qualify for Medicaid. This lack of funding prohibits any ability to send him to subacute rehab or even obtain home health. The patient was eventually discharged home with his spouse. He actually presented today to the emergency room with the chief complaint of left eyelid drooping. On workup in the ER, he was found to have BUN of 65, creatinine 3.5; at discharge on November 14 BUN was 25, creatinine 1.4. Eventually he has been admitted for acute kidney injury. He denies any new complaint. He said initially when he came to the ER he had left eye drooping, but he denies any left eye drooping at this time. No chest pain. No nausea or vomiting. No fever. No other complaint. PAST MEDICAL HISTORY 1. 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 2. Type 2 diabetes, uncontrolled, A1C 9.1 on previous admission on November 11. 3. Hypertension. 4. Hyperlipidemia with low-density lipoprotein of 175. 5. Obstructive sleep apnea. 6. Mild protein malnutrition. 7. Hypothyroidism. 8. Morbid obesity. 9. Peripheral arterial disease. 10. Chronic kidney disease, stage 3. 11. 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 12. Workup on last admission with echocardiogram on November 13 showing ejection fraction of 50% to 55%. Mildly dilated left atrium. Mildly enlarged right atrium. Mild aortic regurgitation. Mild mitral regurgitation. Mild tricuspid regurgitation. No evidence of Unit #: [id number] #: [id number] Patient: ADAM GUERRA. 13. He had a CT angiogram of the head and neck on November 12 with abnormal caliber change at the mid portion of both cervical internal carotid arteries. Intracranially, there is a regular appearance to the proximal intracranial vertebral arteries bilaterally, mild narrowing of the distal left common artery but no hemodynamically significant stenosis. Abnormal right posterior cerebral artery distribution with high-grade stenosis or complete occlusion. 14. Had MRI of the brain, which revealed large acute right ROLL CUTTER stroke. PAST SURGICAL HISTORY 1. History of mastoid surgery. 2. Tonsillectomy. 3. Testicular surgery. SOCIAL HISTORY Patient lives with . No tobacco. Occasional use of alcohol. FAMILY HISTORY Notable for mother having RI. She also has cervical cancer. His grandmother had a CVA. ALLERGIES Aspirin "puts polyps in my nose." MEDICATIONS FROM HOME 1. Lipitor 40 mg daily. 2. Lisinopril 20 mg daily. 3. Plavix 75 mg daily. 4. Glipizide 5 mg daily. 5. Vitamin B12 - 1000 mcg daily. 6. Glucophage 1 gram b.i.d. REVIEW OF SYSTEMS All review of systems is negative except as in history of present illness. PHYSICAL EXAMINATION GENERAL: Middle-aged man lying in bed comfortably, currently not in any distress. He is alert, awake, oriented x3. CURRENT VITALS: Temperature is 98.6, heart rate 105, respirations 18, blood pressure 115/73, oxygen saturation 95%. HEENT: Head is atraumatic. Mucous membranes moist. NECK: Neck is supple. No JVD. No thyromegaly. HEART: S1, S2. Regular rate and rhythm. RESPIRATORY: Lungs are clear to auscultation bilaterally. No rhonchi. No wheezing. ABDOMEN: Abdomen is soft, nontender, nondistended. Bowel sounds are positive. EXTREMITIES: Inspection is normal. No cyanosis. No clubbing. No edema. NEUROLOGIC: He is alert, awake "x3." He follows commands. There is no facial asymmetry. Cranial nerves II-XII intact. Moving all extremities. Power 5/5 on both sides. PSYCHIATRIC: Normal mood and affect. SKIN: Warm and dry. DIAGNOSTIC STUDIES LABORATORY WORKUP: His CK total is 568. White count 15, hemoglobin 15, hematocrit 45, platelets 199. INR is 1.1. Chemistry - Sodium 134, Unit #: [id number] #: [id number] Patient: ADAM GUERRA potassium 3.2, chloride 99, glucose 98, BUN 65, creatinine 3.5. Troponin less than 0.05. ASSESSMENT AND PLAN 1. Acute kidney injury on chronic kidney disease stage 3. His BUN and creatinine on November 14 on discharge were 25 and 1.4. Will admit the patient. IV hydration. Most likely this is secondary to contrast. Will hold metformin, also. 2. Leukocytosis. Likely reactive. 3. Recent acute right posterior communicating artery, likely thrombotic, stroke with subsequent left arm and left leg numbness and left hemianopsia. 4. Diabetes, uncontrolled. Recent A1C 9. Will hold metformin. Continue glipizide. Place on sliding scale. 5. Hypotension. Hold lisinopril. 6. Hypertension. 7. Dyslipidemia. 8. Obstructive sleep apnea. 9. Hypothyroidism. 10. Morbid obesity. 11. Hard of hearing. 12. Deep vein thrombosis prophylaxis. Will place the patient on Lovenox. Dictated by Toro Newman/cayla TD: 11/17/2016 12:09 JOB #: [id number] HISTORY AND PHYSICAL Page 1 of 1 X X HISTORY AND PHYSICAL
--- NOTE | ~2016-11-16 | DS ---
Unit #: [id number] #: [id number] Patient: ADAM GUERRA [id number] [address] [address] [id number] I MR#: [id number] NAME: ADAM GUERRA ROOM: 235 Age: 51 Sex: M Admission Date: 11/16/2016 : 1965 Discharge Date: 11/19/2016 Attending Physician: Junie Mustafa M.D. DISCHARGE SUMMARY PRIMARY CARE PROVIDER None. PRINCIPAL DIAGNOSES 1. Acute kidney injury secondary to contrast-induced nephropathy. 2. Recent right posterior cerebral artery cerebrovascular accident with subsequent left hemianopsia, ataxia, and left arm and leg numbness. 3. Chronic kidney disease, stage 3, baseline creatinine of 1.3. 4. Diabetes mellitus type 2, uncontrolled. 5. Hypertension. 6. Morbid obesity. 7. Obstructive sleep apnea. 8. Mild protein malnutrition. 9. Peripheral arterial disease. CONSULTANTS None. PROCEDURES CT of the head without contrast on 11/16/2016 with subacute infarct involving the right posterior cerebral artery. This involves the right occipital lobe, posterior temporal lobe, and right thalamus. No mass effect perhaps a small amount of edema. CLINICAL HISTORY AND HOSPITAL COURSE Mr. Guerra is a 51-year-old male, just discharged from this facility on 11/14/2016 following a large right [employer]ER stroke. He presented back to the emergency department, because he was worried he was having left eye drooping which was not noted on exam. CT of his head revealed his recent stroke, but no other acute findings. However, lab work revealed an elevated creatinine of 3.5 up from a baseline of 1.3 and the patient was subsequently admitted. Nephrotoxic medications were discontinued and the patient was placed on IV fluids. His creatinine has now returned to his baseline of 1.3. I suspect his elevated creatinine was secondary to contrast use for CT angiogram of his head and neck. I am going to reinitiate metformin at a lower dose given sugars here been well-controlled given he is monitoring his sugar intake and his low-dose lisinopril. Creatinine can be followed up as an outpatient. The patient has remained in the hospital while still trying to arrange his insurance. The patient has reportedly received presumptive Medicaid in Unit #: [id number] #: [id number] Patient: ADAM GUERRA addition to some form of [employer], if we can validate that these are in place and active. We are going to try to get him discharge to inpatient [facility] given that would best benefit him. However, if we are unable to do this or insurance is not active until 11/2016, I may have to send the patient home with plans for outpatient [facility] in the short term and once insurance active perhaps transition to inpatient [facility]. DISCHARGE CONDITION Stable. DISCHARGE STATUS Hopefully the inpatient [facility] versus home. DISCHARGE MEDICATIONS Metformin 1000 mg half a tablet b.i.d., Lipitor 40 mg at bedtime, lisinopril 20 mg half a tablet daily, Plavix 75 mg daily, Glucotrol 5 mg half a tablet p.o. daily, vitamin B12 1000 mcg p.o. daily. DISCHARGE INSTRUCTIONS The patient was instructed to follow a constant carb diet. He can increase activity as tolerated. At this point, he needs assistance to get up. Followup with outpatient Neurology as previously arranged on 11/14/2016 and again we will continue with outpatient [facility] if inpatient [facility] is not possible. Dictated by... Junie Mustafa M.D. BARRY/yoanna TD: 11/21/2016 02:37 JOB #: [id number] DISCHARGE SUMMARY Page 1 of 1 X Junie Mustafa MD X DISCHARGE SUMMARY
--- NOTE | ~2016-11-16 | CT71 ---
[facility] A Service of [facility] & [facility] / [facility] RADIOLOGY TEXT RESULTS PATIENT: ADAM GUERRA LOCATION: [facility] [id number] : [birth year] UNIT #: [id number] AGE: [address]: Tim Carcamo MD SEX: M ORDER DR: [id number] [facility] [address]. [place], [place] [address] [id number] MR#: [id number] Acc #: [id number] NAME: ADAM GUERRA : 1965 SEX: M STUDY DATE/TIME: 11/16/2016 21:45 UNIT: [facility] ROOM: 45685 STUDY DESCRIPTION: CT Head Wo Contrast Attending Physician: Tim Carcamo M.D. Ordering Physician: Antoine Schmidt M.D. Primary Care Physician: Primary Care Physician No MEDICAL IMAGING REPORT This report is preliminary unless electronic signature is present EXAM Noncontrast head CT HISTORY Left eye droop this morning with focal neurologic deficit. Patient states area around left eye is drooping and tingling. COMPARISON 11/11/[address] exam was performed with one or more of the following radiation dose reduction techniques: automatic exposure control, adjustment of mA and/or kV according to patient size, and iterative reconstruction. FINDINGS Axial noncontrast imaging of the brain demonstrates a large focus of decreased attenuation involving the right occipital lobe extending into the posterior right temporal lobe. This is compatible with a infarct involving the distribution of the right posterior cerebral artery. There is some increased attenuation along the periphery of the infarct but no definite hemorrhagic transformation. No mass effect or midline shift. This is compatible with a subacute infarct which was diagnosed by MRI on 11/12/2016. The remainder of the brain parenchyma appears normal. There does appear to be some extension of the infarct into the right thalamus. Bony calvaria unremarkable. Postsurgical changes suggest prior partial mastoidectomy. Chronic left maxillary sinus mucosal disease. IMPRESSION Subacute infarct involving the distribution of the right posterior cerebral artery which has previously been diagnosed with MRI. This involves the right occipital lobe, posterior temporal lobe and extension into the right thalamus. There may be a small amount of edema but no [facility] A Service of [facility] RADIOLOGY TEXT RESULTS PATIENT: ADAM GUERRA [facility] [address] : [birth year] UNIT #: [id number] AGE: [address]: Tim Carcamo MD SEX: M ORDER DR: significant mass effect and no definite hemorrhagic transformation. No definite new areas of infarction are seen on CT. Dictated by... Carmen Gill M.D. THIS IS AN ELECTRONICALLY VERIFIED REPORT Carmen Gill M.D. at 11/17/2016 1:05 PM Greg TD: 11/17/2016 10:57 JOB #: [id number] MEDICAL IMAGING REPORT Page 1 of 1 COPY
--- NOTE | ~2016-11-16 | EKG ---
PATIENT: ADAM GUERRA UNIT #: [id number] Ventricular Rate: 102 BPM Atrial Rate: 102 BPM P-R Interval: 144 ms QRS Duration: 118 ms Q-T Interval: 398 ms QTC Calculation(Bezet): 518 ms P [place]: 41 degrees Calculated R [place]: -76 degrees Calculated T [place]: 58 degrees Diagnosis Line: Sinus tachycardia Diagnosis Line: Left axis deviation Diagnosis Line: Incomplete right bundle branch block Diagnosis Line: Abnormal ECG Diagnosis Line: When compared with ECG of 11-NOV-2016 09:11, Diagnosis Line: Incomplete right bundle branch block is now Diagnosis Line: Present Diagnosis Line: Confirmed by ISABELLA TORIBIO MD ([id number]) on Diagnosis Line: 11/18/2016 8:14:49 PM INTERPRETING MD: RUBIO
[~2016-11-16 20:23] MED LIST changes: +B-121000 MC1 PO; +CLOPIDOGREL75 MG PO; +GLUCOTROL PO; +LIPITOR40 MG PO; +LISINOPRIL20 MG PO; +METFORMIN PO
[2016-11-16 21:43] LABS: BASOPHIL# 0.1 X10e3 (0-0.3); BASOPHIL% 0.6 % (0-2.5); EOSINOPHIL# 0.1 X10e3 (0-0.7); EOSINOPHIL% 0.7 % (0.0-7.0); HEMATOCRIT 45.9 % (38.0-50.0); HEMOGLOBIN 15.4 gm/dL (13.0-16.0); LYMPHOCYTE# 2.9 X10e3 (1.0-3.5); LYMPHOCYTE% 18.2 % (17.0-45.0); MEAN CELL VOLUME 82.5 FL (83-96); MEAN CORPUSCULAR HEMOGLOBIN 27.7 PG (28-34); MEAN CORPUSCULAR HGB CONC 33.6 g/dL (30-36); MEAN PLATELET VOLUME 9.9 FL (6.5-11.5); MONOCYTE# 1.1 X10e3 (0-1.0); MONOCYTE% 6.8 % (3.0-12.0); NEUTROPHIL# 11.7 X10e3 (1.5-7.1); NEUTROPHIL% 73.7 % (40-75); PLATELET COUNT 199 X10e3 (140-420); RED BLOOD COUNT 5.56 X10e (3.90-5.60); RED CELL DISTRIBUTION WIDTH 13.3 % (11.0-15.5); WHITE BLOOD COUNT 15.9 X10e3 (4.0-10.5)
[2016-11-16 21:45] LABS: DIFF IND YES
[2016-11-16 21:51] LABS: POC - CKMB 6.3 ng/mL (0.0-7.9); POC - TROPONIN <0.05 ng/mL (<=0.05)
[2016-11-16 21:55] LABS: INR 1.1; PARTIAL THROMBOPLASTIN TIME 26.8 SECONDS (23.5-31.3); PROTHROMBIN TIME (PATIENT) 11.5 SECONDS (10.0-11.7)
[2016-11-16 21:59] LABS: BUN/CREATININE RATIO 18.57; CALCIUM SERUM 8.8 mg/dL (8.4-10.2); CREATININE SERUM 3.5 mg/dL (0.6-1.4); GLOM FILT RATE Estimated 19.4 mL/min (>60); POTASSIUM 3.2 mmol/L (3.5-5.1)
[2016-11-16 22:30] LABS: PLATELET ESTIMATE NORMAL (NORMAL)
[2016-11-16 23:55] LABS: URINE SOURCE CLEAN CATCH
[2016-11-17 00:04] LABS: URINE APPEARANCE CLEAR; URINE BILIRUBIN NEG (NEG); URINE BLOOD NEG (NEG); URINE COLOR YELLOW; URINE GLUCOSE NEG (NEG); URINE KETONE NEG (NEG); URINE LEUKOCYTE ESTERASE NEG (NEG); URINE NITRATE NEG (NEG); URINE PROTEIN NEG (NEG); URINE SPECIFIC GRAVITY 1.022 (1.003-1.035)
[2016-11-17 00:08] LABS: CULTURE INDICATED? NO
[2016-11-17 06:07] LABS: BASOPHIL% 0.3 % (0-2.5); EOSINOPHIL# 0.1 X10e3 (0-0.7); EOSINOPHIL% 0.4 % (0.0-7.0); HEMATOCRIT 43.9 % (38.0-50.0); HEMOGLOBIN 14.6 gm/dL (13.0-16.0); LYMPHOCYTE# 2.9 X10e3 (1.0-3.5); LYMPHOCYTE% 20.5 % (17.0-45.0); MEAN CELL VOLUME 82.6 FL (83-96); MEAN CORPUSCULAR HEMOGLOBIN 27.5 PG (28-34); MEAN CORPUSCULAR HGB CONC 33.4 g/dL (30-36); MONOCYTE# 0.8 X10e3 (0-1.0); MONOCYTE% 5.6 % (3.0-12.0); NEUTROPHIL# 10.3 X10e3 (1.5-7.1); NEUTROPHIL% 73.2 % (40-75); PLATELET COUNT 185 X10e3 (140-420); RED BLOOD COUNT 5.32 X10e (3.90-5.60); RED CELL DISTRIBUTION WIDTH 13.1 % (11.0-15.5)
[2016-11-17 06:09] LABS: DIFF IND NO
[2016-11-17 06:57] LABS: BUN/CREATININE RATIO 21.03; CALCIUM SERUM 8.6 mg/dL (8.4-10.2); CREATININE SERUM 2.9 mg/dL (0.6-1.4); GLOM FILT RATE Estimated 24.3 mL/min (>60); POTASSIUM 3.8 mmol/L (3.5-5.1)
[2016-11-18 06:05] LABS: HEMATOCRIT 41.8 % (38.0-50.0); MEAN CELL VOLUME 83.3 FL (83-96); MEAN CORPUSCULAR HEMOGLOBIN 27.9 PG (28-34); MEAN CORPUSCULAR HGB CONC 33.4 g/dL (30-36); MEAN PLATELET VOLUME 9.7 FL (6.5-11.5); RED BLOOD COUNT 5.02 X10e (3.90-5.60); RED CELL DISTRIBUTION WIDTH 13.1 % (11.0-15.5); WHITE BLOOD COUNT 7.6 X10e3 (4.0-10.5)
[2016-11-18 06:46] LABS: CALCIUM SERUM 8.4 mg/dL (8.4-10.2); CREATININE SERUM 1.5 mg/dL (0.6-1.4); GLOM FILT RATE Estimated 53.9 mL/min (>60); POTASSIUM 3.9 mmol/L (3.5-5.1)
[2016-11-19 06:22] LABS: BUN/CREATININE RATIO 16.15; CALCIUM SERUM 8.8 mg/dL (8.4-10.2); CREATININE SERUM 1.3 mg/dL (0.6-1.4); GLOM FILT RATE Estimated 64.1 mL/min (>60); POTASSIUM 3.9 mmol/L (3.5-5.1)
[2016-11-19] MEDS ORDERED: PRINIVIL10 MG PO (16:23)
[2016-11-19] MEDS ORDERED: CLOPIDOGREL75 MG PO (16:26)
== END 2016-11-19 18:30 | disposition home or self-care (01) | DRG 683 ==
LOC: CED 20:23 → C3A PCU 23:58 → CEDOF 23:58 → CED 23:58 → C2A 23:58 → C3A PCU 11-17 14:53 → CEDOF 11-17 14:53 → C3A PCU 11-17 14:53 → C2A 11-18 16:12
PROVIDERS: Emergency Medicine; Internal Medicine; Psychiatry & Neurology Neurology
DX: N17.9 Acute kidney failure, unspecified (principal); E44.1 Mild protein-calorie malnutrition; I13.10 Hypertensive heart and chronic kidney disease without heart failure, with stage 1 through stage 4 chronic kidney disease, or unspecified chronic kidney disease; E11.65 Type 2 diabetes mellitus with hyperglycemia; I07.1 Rheumatic tricuspid insufficiency; I69.954 Hemiplegia and hemiparesis following unspecified cerebrovascular disease affecting left non-dominant side; N18.3 Chronic kidney disease, stage 3 (moderate); G47.33 Obstructive sleep apnea (adult) (pediatric); E03.9 Hypothyroidism, unspecified; H91.92 Unspecified hearing loss, left ear; Z88.8 Allergy status to other drugs, medicaments and biological substances; Z79.899 Other long term (current) drug therapy; E66.01 Morbid (severe) obesity due to excess calories; I73.9 Peripheral vascular disease, unspecified; H53.47 Heteronymous bilateral field defects; I69.893 Ataxia following other cerebrovascular disease; I69.898 Other sequelae of other cerebrovascular disease; E78.5 Hyperlipidemia, unspecified
CPT/HCPCS: 36415; 70450; 80048; 81003; 82550; 82553; 82947; 84484; 85025; 85027; 85610; 85730; 93005; 97162; 97166; 97530; 99285; G8978-GP; G8979-GP; G8987-GO; G8988-GO; G8989-GO; J1650